=== PATIENT | female | born 1975 | race Caucasian/White ===

== ENCOUNTER 2023-10-10 10:04 | Outpatient (CLI) | payer OTHER, SELFPAY | END 2023-10-10 10:05 | disposition home or self-care (01) | PROVIDERS: PCP Family Medicine; Visit Provider Family Medicine | DX: Z00.00 Encounter for general adult medical examination without abnormal findings (principal); N92.0 Excessive and frequent menstruation with regular cycle; Z13.6 Encounter for screening for cardiovascular disorders; Z11.59 Encounter for screening for other viral diseases | CPT/HCPCS: 80053; 80061; 86803 ==

== ENCOUNTER 2023-11-10 14:56 | Outpatient (CLI) | payer OTHER, SELFPAY ==
--- NOTE | 2023-11-10 15:00 | US_ITS ---
Patient: NATALIE FLORES Facility:?[facility] Patient ID:?[id number] Site Patient ID:?[id number]. Site :?[id number] Study:?US-Pelvis PELVIS TA & TV-11/10/2023 4:52:52 PM Ordering Physician:?CHEL ABARCA Final Report: HISTORY: Excessive infrequent menstruation. Last menstrual period 10/12/2023. TECHNIQUE: Transabdominal and transvaginal grayscale and color ultrasound of the pelvis was performed. The transvaginal exam was necessary for further evaluation of the gynecologic structures. COMPARISON: None. FINDINGS: Enlarged retroverted uterus measuring 10.3 x 5.7 x 7.2 CM. Multiple fibroids are present measuring: -0.9 x 0.9 x 0.6 CM intramural fibroid in anterior uterine body -2.5 x 1.9 x 2.2 CM intramural fibroid in the anterior uterine body -1.9 x 0.8 x 1.2 CM intramural fibroid in the anterior uterine body/fundus -1.2 x 0.7 x 1 CM intramural fibroid in the posterior uterine body/fundus -1.8 x 1.7 x 2.5 CM submucosal fibroid at the fundus The endometrial stripe in double layer thickness measures 2.2 cm. Right ovary measures 3.3 x 2 x 2.2 cm. Left ovary measures 5.2 x 3 x 3.4 cm and contains 3 CM dominant follicle. Normal blood flow is seen within both ovaries. Trace free fluid in the pelvis. IMPRESSION: 1. Fibroid uterus with submucosal fibroid measuring up to 2.5 CM. 2. Endometrial stripe measures 2.2 CM, which is abnormally thickened. Dictated by Eamon Phan MD @ 11/12/2023 12:18:01 PM Signed by:?Eamon Phan MD @11/12/2023 12:18:01 PM (Electronic Signature)
== END 2023-11-10 14:57 | disposition home or self-care (01) ==
LOC: US 14:56
PROVIDERS: PCP Family Medicine; Visit Provider Family Medicine
DX: N92.0 Excessive and frequent menstruation with regular cycle (principal); D25.0 Submucous leiomyoma of uterus
CPT/HCPCS: 76830; 76856

== ENCOUNTER 2023-11-30 10:11 | Outpatient (CLI) | payer OTHER, SELFPAY | END 2023-11-30 10:12 | disposition home or self-care (01) | LOC: FRMREF 10:12 | PROVIDERS: PCP Family Medicine; Visit Provider Registered Nurse | DX: N92.0 Excessive and frequent menstruation with regular cycle (principal) | CPT/HCPCS: 84443 ==

== ENCOUNTER 2023-12-05 19:08 | Outpatient (CLI) | payer OTHER, SELFPAY ==
--- NOTE | 2023-12-05 19:20 | MM_ITS ---
Patient: NATALIE FLORES Facility:?[facility] Patient ID:?[id number] Site Patient ID:?[id number]. Site :?[id number] Study:?XRay-Breast Bilateral 3D screening mammogram w/cad-12/05/2023 7:36:00 PM Ordering Physician:Enrrique Final Report: BILATERAL SCREENING MAMMOGRAM WITH COMPUTER-AIDED DETECTION AND TOMOSYNTHESIS TECHNIQUE: CC and MLO views were obtained. These mammographic images have been obtained using full-field digital technique. These mammographic images were interpreted with the benefit of computer-aided detection. Breast tomosynthesis was used in this interpretation. COMPARISON FILM: None. This is a baseline study. FINDINGS: The breasts are heterogeneously dense, which may obscure small masses. IMPRESSION: There is no radiographic evidence for malignancy. ASSESSMENT: BI-RADS Category 1: Negative RECOMMENDATION: Routine screening mammogram in 1 year. A lay language report of this examination will be provided to the patient. ABBY HARDING M.D. Diagnostic Radiologist [email or web address]/[email or web address] D& Transcribed: 4:[address]/Dictated by: Abby Harding MD @ 12/06/2023 11:11:00 AM Signed by:?Abby Harding MD @12/07/2023 5:30:06 AM (Electronic Signature)
== END 2023-12-05 19:09 | disposition home or self-care (01) ==
PROVIDERS: PCP Family Medicine; Visit Provider Family Medicine
DX: Z12.31 Encounter for screening mammogram for malignant neoplasm of breast (principal); R92.2 Inconclusive mammogram
CPT/HCPCS: 77063; 77067

== ENCOUNTER 2024-04-04 11:53 | Outpatient (CLI) | payer OTHER, SELFPAY | END 2024-04-04 11:54 | disposition home or self-care (01) | PROVIDERS: PCP Family Medicine; Visit Provider Family Medicine | DX: N92.0 Excessive and frequent menstruation with regular cycle (principal) | CPT/HCPCS: 83001 ==

== ENCOUNTER 2024-04-09 06:59 | Day surgery (SDC) | payer OTHER, SELFPAY ==
[2024-04-09] VITALS (7 sets, daily range): BP systolic 107–124; BP diastolic 74–91; PULSE 56–78; RESP 14–16; TEMP 36.6–36.9; O2SAT 97–100; BMI 25.2
[2024-04-09] MEDS: LACTATED RINGERS 1000 ML 1,000 ML 100 ML IV (05:55)
[2024-04-09 07:36] LABS: Hemoglobin* 14.9 gm/dL (12.0-16.0)
[2024-04-09 07:40] LABS: Ur HCG Qualitative* Negative (Negative)
[2024-04-09] MEDS: SODIUM CHLORIDE 0.9 % (FLUSH) 10 ML SYRINGE IVF (07:54)
--- NOTE | 2024-04-09 08:00 | W.PM.H&PU_ITS ---
History & Physical Update History & Physical Update H&P Reviewed and patient assessed: No changes noted H&P Updates: Reina is seen in pre-op prior to planned hysteroscopy, D&C, hysteroscopic myomectomy and endometrial ablation. Prior EMB was benign. UPT negative today. Utilizes carolyne for contraception, previously used NFP with success. We reviewed the risks of surgery in detail including bleeding, infection, damage to surrounding structures, abnormal vaginal discharge for up to 3 months postprocedure. With regard to contraception, I explained that after ablation is very high risk. I worry that some of her cues that she has utilized for natural family planning will be altered with ablation (such as bleeding pattern, discharge) where I would strongly recommend she utilize condoms or continue OCPs in the postoperative state, she is open to continuing [place] where refill was sent. She expressed understanding and is agreeable to plan.
[2024-04-09] MEDS: BUPIVACAINE 0.5% 30 ML INJECTION (09:16)
--- NOTE | 2024-04-09 09:29 | P.GYNPRC_ITS ---
Procedure Note Time Seen by Provider: 09:34 Date of procedure: 04/09/24 Will [facility] bill your pro fee for this procedure?: Yes Pre-op diagnosis: Abnormal uterine bleeding Procedure: Hysteroscopy, myomectomy, endometrial ablation Anesthesia: MAC Complications: None Surgeon: Viridiana Hollis MD Estimated blood loss (mL): 5 IV fluids (mL): 400 Urine Output (mL): 150 Pathology: specimen obtained, sent to pathology Condition: stable Disposition: same day Findings: 1 cm posterior fundal type 0 leiomyoma Otherwise unremarkable uterine cavity and bilateral tubal ostia Procedure Description: After obtaining informed consent, the patient was taken to the operating room where she received monitored anesthesia care. She was prepared and draped in the normal sterile fashion, in the dorsal lithotomy position. Bladder was emptied via in/out catheterization, 150mL clear yellow urine. An open-sided bivalve speculum was introduced into the vagina and the cervix visualized. The anterior lip of the cervix was grasped with a single-tooth tenaculum for traction. A paracervical block was then administered using a total of 20 mL of 0.5% Marcaine. The uterus was gently sounded, to length of 9.5 cm. The cervix length was determined to be 4 cm using Hegar dilators, yielding a uterine cavity length of 5.5 cm. The cervix was gently dilated to a #8 Hegar dilator. A hysteroscope was then advanced under direct visualization through the cervix into the uterine cavity. Sterile normal saline was used as distending medium. The uterine cavity was carefully inspected with the findings noted above. Dense tissue mini blade was utilized to resect the type 0 fibroid in its entirety without difficulty. Care was made to ensure integrity of the myometrium was not disrupted. The hysteroscope was then removed. The Rafaela device was then set to a cavity length of 5.5 cm, inserted through the cervical os into the uterine cavity to the level of the fundus, and deployed. The device was sealed against the cervix. The safety checks were then passed x2 and the 2-minute treatment cycle initiated. Following completion of the treatment cycle, the Rafaela device was removed. The hysteroscope was advanced again into the uterine cavity and the uterine cavity inspected. A good ablation was noted from the internal os to fundus and to the cornua bilaterally. Pictures were taken for documentation purposes. The hysteroscope was removed. The tenaculum was removed. There was little bleeding from the tenaculum site, which was controlled with direct pressure sponge stick. All instruments were then removed. The patient tolerated the procedure well. Sponge, lap, needle, and instrument counts reported as correct x2. The patient was taken to the recovery room awake in a stable condition. Surgical debrief completed. Pathology is endometrial curettings.
--- NOTE | 2024-04-09 09:30 | W.ANESCHARGE ---
Anesthesia Charges Start Date/Time Anesthesia Start Date: 04/09/24 Anesthesia Start Time: 08:38 Stop Date/Time Anesthesia Stop Date: 04/09/24 Anesthesia Stop Time: 09:31
== END 2024-04-09 11:17 | disposition home or self-care (01) ==
LOC: OR 07:00
PROVIDERS: PCP Family Medicine; Visit Provider Obstetrics & Gynecology
PROC: 0UF98ZZ Fragmentation in Uterus, Via Natural or Artificial Opening Endoscopic (ICD-10-PCS; CPT 58563; principal; 2024-04-09 08:15)
DX: N93.8 Other specified abnormal uterine and vaginal bleeding (principal); D25.0 Submucous leiomyoma of uterus
CPT/HCPCS: 58563; 58561; 00952; 36415; 81025; 85018; 86850; 86900; 86901; 88305; C1782; J0665; J1100; J1885; J2250; J2405; J2704; J3010; J7120

== ENCOUNTER 2025-05-27 14:35 | Outpatient (CLI) | payer OTHER, SELFPAY | END 2025-05-27 14:36 | disposition home or self-care (01) | PROVIDERS: PCP Family Medicine; Visit Provider Family Medicine | DX: Z00.00 Encounter for general adult medical examination without abnormal findings (principal) | CPT/HCPCS: 80053; 80061 ==

== ENCOUNTER 2025-07-18 14:49 | Outpatient (CLI) | payer OTHER, SELFPAY ==
--- NOTE | 2025-07-18 15:00 | CRLHL7_ITS ---
For Patients: As a result of the Cures Act, medical imaging exams and procedure reports are released immediately into your electronic medical record. You may view this report before your referring provider. If you have questions, please contact your health care provider. INDICATION: BILATERAL SCREENING MAMMOGRAM, ASYMPTOMATIC 50 Y/O FEMALE COMPARISON: 12/05/2023 TECHNIQUE: Digital mammogram in CC and MLO projections including computer-aided detection (CAD) and tomosynthesis. BREAST COMPOSITION: The breasts are heterogeneously dense, which may obscure small masses. FINDINGS: No suspicious findings. ASSESSMENT: BI-RADS 1 Negative RECOMMENDATION: Annual screening mammogram. A lay language report of this examination will be provided to the patient. Dictated by: Dayana Coello MD @ 07/22/2025 09:10:22 (Electronically Signed)
== END 2025-07-18 14:50 | disposition home or self-care (01) ==
LOC: MAMMO 14:49
PROVIDERS: PCP Family Medicine; Visit Provider Family Medicine
DX: Z12.31 Encounter for screening mammogram for malignant neoplasm of breast (principal); R92.333 Mammographic heterogeneous density, bilateral breasts
CPT/HCPCS: 77063; 77067